=== PATIENT | male | born 1945 | race Caucasian/White ===

== ENCOUNTER → 2024-06-03 08:58 | Outpatient (REF) | payer MEDICARE, OTHER, SELFPAY ==
[2024-06-03 10:30] LABS: Blood Urea Nitrogen 15 mg/dl (9-20)
[2024-06-05 13:23] LABS: Chromogranin A 60 ng/mL (0-187)
== END ==
LOC: REG 08:58
PROVIDERS: ATTENDING PHYSICIAN Surgery; FAMILY PHYSICIAN Family Medicine
DX: Z85.9 Personal history of malignant neoplasm, unspecified (principal); Z01.812 Encounter for preprocedural laboratory examination
CPT/HCPCS: 36415; 82565; 84520; 86316

== ENCOUNTER → 2024-06-06 08:48 | Outpatient (REF) | payer MEDICARE, OTHER, SELFPAY | LOC: REG 08:48 | PROVIDERS: ATTENDING PHYSICIAN Surgery | DX: Z85.9 Personal history of malignant neoplasm, unspecified (principal); Z01.812 Encounter for preprocedural laboratory examination | CPT/HCPCS: 81050; 83497 ==

== ENCOUNTER → 2024-06-23 09:53 | Outpatient (REF) | payer MEDICARE, OTHER, SELFPAY | LOC: HWRAD 09:53 | PROVIDERS: ATTENDING PHYSICIAN Family Medicine | DX: M25.562 Pain in left knee (principal) | CPT/HCPCS: 73564 ==

== ENCOUNTER → 2024-07-01 07:42 | Outpatient (REF) | payer MEDICARE, OTHER, SELFPAY | LOC: RAD 07:42 | PROVIDERS: ATTENDING PHYSICIAN Surgery; FAMILY PHYSICIAN Family Medicine | DX: Z85.9 Personal history of malignant neoplasm, unspecified (principal) | CPT/HCPCS: 74177; Q9967 ==

== ENCOUNTER → 2024-08-25 06:52 | Outpatient (REF) | payer MEDICARE, OTHER, SELFPAY ==
[2024-08-25 08:21] LABS: ALT (SGPT) 47 U/L (0-50); AST (SGOT) 33 U/L (17-59); Albumin 4.5 g/dl (3.5-5.0); Alkaline Phosphatase 88 U/L (38-126); Blood Urea Nitrogen 17 mg/dl (9-20); Calcium 9.8 mg/dl (8.4-10.2); Carbon Dioxide 31 mmol/L (22-30); Chloride 99 mmol/L (98-107); Glucose 113 mg/dl (70-99); HDL Cholesterol 35 mg/dl; LDL Cholesterol, Calculated 60 mg/dl; Potassium 4.2 mmol/L (3.5-5.1); Sodium 139 mmol/L (135-145); Total Bilirubin 5.1 mg/dl (0.2-1.3); Total Cholesterol 115 mg/dl (50-199); Total Protein 7.1 g/dl (6.3-8.2); Triglyceride 101 mg/dl (10-149); Very Low Density Lipoprotein 20 mg/dl (0-30); eGFR > 60.00
== END ==
LOC: REG 06:52
PROVIDERS: ATTENDING PHYSICIAN Family Medicine
DX: I10 Essential (primary) hypertension (principal); I25.10 Atherosclerotic heart disease of native coronary artery without angina pectoris; E78.00 Pure hypercholesterolemia, unspecified; I25.5 Ischemic cardiomyopathy; E78.5 Hyperlipidemia, unspecified
CPT/HCPCS: 36415; 80053; 80061

== ENCOUNTER → 2025-03-09 07:00 | Outpatient (REF) | payer MEDICARE, OTHER, SELFPAY ==
[2025-03-09 07:54] LABS: Hematocrit 52.2 % (39.0-52.0); Hemoglobin 17.8 g/dL (13.0-18.0); Mean Corp Hgb Conc. 34.1 g/dL (33.0-37.0); Mean Corpuscular Volume 87.7 fL (80.0-94.0); Nucleated Red Blood Cells % 0 % (-); Platelet Count 217 10^3/uL (130-400); Red Cell Dist. Width 13.3 % (11.5-14.5)
[2025-03-09 08:29] LABS: ALT (SGPT) 42 U/L (0-50); AST (SGOT) 31 U/L (17-59); Albumin 4.7 g/dl (3.5-5.0); Alkaline Phosphatase 81 U/L (38-126); Blood Urea Nitrogen 16 mg/dl (9-20); Calcium 10.0 mg/dl (8.4-10.2); Carbon Dioxide 29 mmol/L (22-30); Chloride 101 mmol/L (98-107); Glucose 105 mg/dl (70-99); Potassium 3.9 mmol/L (3.5-5.1); Sodium 138 mmol/L (135-145); Total Protein 7.4 g/dl (6.3-8.2); eGFR > 60.00
== END ==
LOC: REG 07:00
PROVIDERS: ATTENDING PHYSICIAN Family Medicine
DX: E78.5 Hyperlipidemia, unspecified (principal); G45.9 Transient cerebral ischemic attack, unspecified; Z86.73 Personal history of transient ischemic attack (TIA), and cerebral infarction without residual deficits; I25.10 Atherosclerotic heart disease of native coronary artery without angina pectoris; E78.00 Pure hypercholesterolemia, unspecified
CPT/HCPCS: 36415; 80053; 85025

== ENCOUNTER → 2025-06-18 10:23 | Outpatient (REF) | payer MEDICARE, OTHER, SELFPAY | LOC: RAD 10:23 | PROVIDERS: ATTENDING PHYSICIAN Physician Assistant; FAMILY PHYSICIAN Family Medicine | DX: M25.561 Pain in right knee (principal); R29.6 Repeated falls | CPT/HCPCS: 73564 ==

== ENCOUNTER → 2025-06-24 06:51 | Outpatient (REF) | payer MEDICARE, OTHER, SELFPAY ==
[2025-06-24 08:10] LABS: Blood Urea Nitrogen 15 mg/dl (9-20)
== END ==
LOC: REG 06:51
PROVIDERS: ATTENDING PHYSICIAN Surgery; FAMILY PHYSICIAN Family Medicine
DX: Z85.9 Personal history of malignant neoplasm, unspecified (principal)
CPT/HCPCS: 36415; 82565; 84520; 86316

== ENCOUNTER → 2025-06-25 08:15 | Outpatient (REF) | payer MEDICARE, OTHER, SELFPAY | LOC: REG 08:15 | PROVIDERS: ATTENDING PHYSICIAN Surgery; FAMILY PHYSICIAN Family Medicine | DX: Z85.9 Personal history of malignant neoplasm, unspecified (principal) | CPT/HCPCS: 81050; 83497 ==

== ENCOUNTER → 2025-07-03 07:30 | Outpatient (REF) | payer MEDICARE, OTHER, SELFPAY | LOC: RAD 07:30 | PROVIDERS: ATTENDING PHYSICIAN Surgery; FAMILY PHYSICIAN Family Medicine | DX: Z85.9 Personal history of malignant neoplasm, unspecified (principal) | CPT/HCPCS: 74177; Q9967 ==